=== PATIENT | female | born 1975 | race Caucasian/White ===

== ENCOUNTER 2020-05-03 05:57 | Day surgery (SDC) | payer MEDICARE, MEDICAID ==
[~2020-05-03] VITALS: Ht 165.1 cm; Wt 110.8 kg
[2020-05-03] MEDS ORDERED: LACTATED RINGERS 1,000 ML IV SCH (06:36)
[2020-05-03] MEDS ORDERED: CHLORHEXIDINE 15 ML UDC MM ONE (07:00)
[2020-05-03 07:02] VITALS: BP 121/74
[2020-05-03] MEDS ORDERED: PRED5TAB PO (07:14)
[2020-05-03] MEDS ORDERED: AMIT25TA PO (07:14)
[2020-05-03] MEDS ORDERED: OMEP40CA42 PO (07:14)
[2020-05-03] MEDS ORDERED: BUPR300T49 PO (07:14)
[2020-05-03] MEDS ORDERED: CELE200C PO (07:14)
[2020-05-03] MEDS ORDERED: FEXO1TAB29 PO (07:14)
[2020-05-03] MEDS ORDERED: FURO-93 PO (07:14)
[2020-05-03] MEDS ORDERED: FENT1PAT77 TD (07:14)
[2020-05-03] MEDS ORDERED: HYDR-3246 PO (07:14)
[2020-05-03] MEDS ORDERED: PREG200C PO (07:14)
[2020-05-03] MEDS ORDERED: SILD20TA PO (07:14)
[2020-05-03] MEDS ORDERED: LOSA100T14 PO (07:14)
[2020-05-03] MEDS ORDERED: HYDR200T72 PO (07:14)
[2020-05-03] MEDS ORDERED: ONDA4TAB7 PO (07:14)
[2020-05-03] MEDS ORDERED: MIDAZOLAM 1 MG/ML, 2ML ONE (07:41)
[2020-05-03] MEDS ORDERED: PROPOFOL 10 MG/ML, 20ML ONE (07:42)
[2020-05-03] MEDS ORDERED: DEXAMETHASONE 4 MG/ML, 1ML ONE (07:42)
[2020-05-03] MEDS ORDERED: GLYCOPYRROLATE 0.2MG/1ML, 5ML ONE (07:42)
[2020-05-03] MEDS ORDERED: SUCCINYLCHOLINE 20 MG/ML, 10ML ONE (07:42)
[2020-05-03] MEDS ORDERED: NEOSTIGMINE 1 MG/ML, 10ML ONE (07:42)
[2020-05-03] MEDS ORDERED: CEFAZOLIN 1,000 MG ONE (07:42)
[2020-05-03] MEDS ORDERED: ROCURONIUM 10MG/ML,5ML ONE (07:42)
[2020-05-03] MEDS ORDERED: ONDANSETRON 2MG/ML, 2ML ONE (07:42)
[2020-05-03] MEDS ORDERED: FENTANYL PF 100 MCG/2ML ONE (07:42)
[2020-05-03] MEDS ORDERED: PROMETHAZINE 25 MG/ML, 1ML IVPush PRN (08:00)
[2020-05-03] MEDS ORDERED: HYDROmorphone 1 MG/ML, 1ML INJ IVPush PRN (08:00)
[2020-05-03] MEDS ORDERED: OXYcodone 5 MG/5 ML ORAL.SOL UDC PO PRN (08:00)
[2020-05-03] MEDS ORDERED: FENTANYL PF 100 MCG/2ML IV PRN (08:00)
[2020-05-03] MEDS ORDERED: HYDROcodone/APAP 7.5-325MG/15ML UDC PO PRN (08:00)
[2020-05-03] MEDS ORDERED: MEPERIDINE/PF 25MG/0.5ML IVPush PRN (08:00)
[2020-05-03] MEDS ORDERED: SUGAMMADEX 200 MG/2 ML IVPush ONE (08:06)
[2020-05-03] MEDS ORDERED: PHENYLEPHRINE 10 MG/ML ONE (08:06)
[2020-05-03 08:11] LABS: INTERNATIONAL NORMALIZED RATIO 1.02 (0.93-1.1); PROTHROMBIN TIME 10.8 Seconds (9.6-11.5)
[2020-05-03 08:12] LABS: ALANINE AMINOTRANSFERASE 20 U/L (12-78); ALBUMIN 3.8 g/dL (3.4-5.0); ANION GAP 5 mmol/L (5-15); CALCIUM 8.3 mg/dL (8.5-10.1); CHLORIDE 106 mmol/L (98-107); CREATININE 0.91 mg/dL (0.55-1.02)
[2020-05-03 08:14] LABS: ALKALINE PHOSPHATASE 62 U/L (45-117); BILIRUBIN,TOTAL 1.3 mg/dL (0.2-1.0); TOTAL PROTEIN 8.4 g/dL (6.4-8.2)
[2020-05-03 08:34] LABS: MEAN CORPUSCULAR HGB CONC 30.7 g/dL (32.4-35.8); MEAN CORPUSCULAR VOLUME 71.8 fL (80-100); MEAN PLATELET VOLUME 9.9 fL (7.4-10.4); PLATELET COUNT 161 x10^3/uL (130-400); RED BLOOD COUNT 5.03 x10^6/uL (3.82-5.3); RED CELL DISTRIBUTION WIDTH 19.4 % (9.6-15.2)
[2020-05-03 08:55] LABS: BASOPHILS # (AUTO) 0.04 x10^3/uL (0-0.1); BASOPHILS % (AUTO) 1 % (0-1); EOSINOPHILS % (AUTO) 0 % (1-7); LYMPHOCYTES # (AUTO) 1.23 x10^3/uL (1-3.4); LYMPHOCYTES % (AUTO) 32 % (22-44); MD MORPH REVIEW ONLY; MONOCYTES # (AUTO) 0.38 x10^3/uL (0.2-0.8); MONOCYTES % (AUTO) 10 % (2-9); NEUTROPHILS # (AUTO) 2.16 x10^3/uL (1.8-6.8); NEUTROPHILS % (AUTO) 57 % (42-75)
[2020-05-03 08:56] LABS: <PLATELET ESTIMATE> ADEQUATE; <PLT MORPHOLOGY> NORMAL PLT MORPH; ANISOCYTOSIS 1+; MICROCYTOSIS 1+; OVALOCYTES 1+; POLYCHROMASIA 1+
[2020-05-03] MEDS ORDERED: ALBUTEROL HFA 90 MCG/SPRAY INH PRN (10:00)
== END 2020-05-03 13:30 | disposition home or self-care (01) ==
LOC: OUT 05:57
PROVIDERS: ATTEND Internal Medicine Critical Care Medicine
DX: R59.0 Localized enlarged lymph nodes (principal); Z11.59 Encounter for screening for other viral diseases; J84.9 Interstitial pulmonary disease, unspecified; I10 Essential (primary) hypertension; E66.01 Morbid (severe) obesity due to excess calories; Z79.01 Long term (current) use of anticoagulants; Z79.899 Other long term (current) drug therapy; Z88.8 Allergy status to other drugs, medicaments and biological substances
CPT/HCPCS: 31624; 31628; 31632; 31652; 36415; 71045; 80053; 85025; 85610; 85730; 87070; 87205; 87635; 88112; 88305; 88341; 88342; J0330; J0690; J1100; J2250; J2370; J2405; J2704; J2710; J3010; J7120; 31625; 76000